=== PATIENT | female | born 1945 | race Caucasian/White ===

== ENCOUNTER → 2017-02-02 | Outpatient (CLI) | payer OTHER ==
[~2017-02-02] MED LIST: ASPIRIN EC81 MG PO; COLCRYS0.6 MG PO; COREG 12.5MG12.5 MG PO; CYMBALTA60 MG PO; GLUCOPHAGE 500500 MG PO; HYDRALAZINE HCL25 MG PO; INCRUSE ELLI62.5 MCG INH; LASIX TAB 20 MG20 MG PO; LEVAQUIN750 MG PO; LORTAB 5-325 M1 EACH PO; MAGNESIUM OXID500 MG PO; NEURONTIN 300300 MG PO; NORVASC 5 MG TAB5 MG PO; PLAVIX 75 MG TA75 MG PO; PRAVACHOL40 MG PO; ROCALTROL CA0.25 MCG PO; SYMBICORT 160-1 INHA INH; SYNTHROID 100100 MCG PO; TYLENOL 325MG325 MG PO; VITAMIN B-122500 MCG PO; VITAMIN B-6100 MG PO; VITAMIN D31000 UNI1 PO; ZANTAC 150 MG150 MG PO; ZANTAC150 MG PO
== END ==
LOC: OPSV 08:30
DX: N28.1 Cyst of kidney, acquired (principal); N28.89 Other specified disorders of kidney and ureter
CPT/HCPCS: 74170; 96360; 96361; J7030; J7050; Q9962

== ENCOUNTER 2021-02-09 13:23 | Emergency (ER) | payer OTHER ==
[~2021-02-09 13:23] MED LIST changes: +ACETAZOLAMIDE250 MG PO; +ACID CONTROL150 MG PO; +ACID REDUCER150 MG PO; +ALBUTEROL2.5 MG/3 M INH; +ASPIR 8181 MG PO; +BROVANA15 MCG/2 M NEB; +BUDESONIDE0.5 MG/2 M NEB; +BUMEX 1MG TABLET1 MG PO; +DELSYM30 MG/5 ML PO; +DULERA 200 MCG8.8 GM INH; +ELIQUIS 5 MG TAB5 MG PO; +FEOSOL325 MG PO; +FERROUS SULFAT325 M2 PO; +FUROSEMIDE20 MG PO; +HYDRALAZINE HCL10 MG PO; +K-DUR TAB 10 M10 MEQ PO; +K-TAB ER20 MEQ PO; +LASIX20 MG PO; +LASIX40 MG PO; +LEVOTHYROXINE100 MCG PO; +LOPRESSOR50 MG PO; +MAGNESIUM500 MG PO; +MEDROL DOSEPAK 24 MG PO; +MEDROL4 MG PO; +NEURONTIN300 MG PO; +NORVASC5 MG PO; +OMEPRAZOLE40 MG PO; +PERCOCET 10-321 EACH PO; +PREDNISONE20 MG PO; +PROTONIX40 MG PO; +RANITIDINE PO; +SPIRIVA18 MCG INH; +TIROSINT100 MCG PO; +TOPROL XL50 MG PO; +VENTOLIN HFA 66.7 GM INH; +VITAMIN B-122500 MCG SL; +VITAMIN D350 MCG PO; +YUPELRI175 MCG/3 INH; +ZITHROMAX500 MG PO; +ZOLOFT25 MG PO; +ZYLOPRIM 300 M300 MG PO; +ZYVOX600 MG PO
[2021-02-09 14:24] LABS: HEMOGLOBIN 10.4 gm/dl (12.3-15.3); RED BLOOD COUNT 3.37 M/UL (4.00-5.10); WHITE BLOOD COUNT 10.4 K/UL (4.5-11.0)
[2021-02-09 14:45] LABS: BUN/CREATININE RATIO 18 (0-10)
== END 2021-02-09 17:17 | disposition home or self-care (01) ==
LOC: ER1 13:23
PROVIDERS: Physician Assistant
DX: J44.9 Chronic obstructive pulmonary disease, unspecified (principal); I13.0 Hypertensive heart and chronic kidney disease with heart failure and stage 1 through stage 4 chronic kidney disease, or unspecified chronic kidney disease; I50.9 Heart failure, unspecified; N18.9 Chronic kidney disease, unspecified; K21.9 Gastro-esophageal reflux disease without esophagitis; I48.91 Unspecified atrial fibrillation; I25.10 Atherosclerotic heart disease of native coronary artery without angina pectoris; Z86.73 Personal history of transient ischemic attack (TIA), and cerebral infarction without residual deficits
CPT/HCPCS: 71045; 80053; 82550; 82553; 83874; 83880; 84484; 85025; 93005; 94664; 94760; 96374; 99285; J1940

== ENCOUNTER 2021-02-17 13:39 | Inpatient (IN) | payer OTHER ==
[~2021-02-17] VITALS: Ht 160 cm; Wt 81.9 kg
[2021-02-17 14:59] LABS: HEMOGLOBIN 9.4 gm/dl (12.3-15.3); RED BLOOD COUNT 3.09 M/UL (4.00-5.10); WHITE BLOOD COUNT 13.4 K/UL (4.5-11.0)
[2021-02-17 15:37] LABS: BUN/CREATININE RATIO 27 (0-10)
[2021-02-17] MEDS ORDERED: SPIRONOLACTONE25 MG PO (19:29)
[2021-02-17] MEDS ORDERED: BUSPAR 10MG10 MG PO (19:30)
[2021-02-17] MEDS ORDERED: PREDNISONE10 MG PO (19:31)
[2021-02-17] MEDS ORDERED: PERCOCET 10-321 EACH PO (23:40)
[2021-02-18 03:15] LABS: HEMOGLOBIN 8.8 gm/dl (12.3-15.3); RED BLOOD COUNT 2.92 M/UL (4.00-5.10)
[2021-02-19 02:09] LABS: HEMOGLOBIN 8.5 gm/dl (12.3-15.3); RED BLOOD COUNT 2.81 M/UL (4.00-5.10); WHITE BLOOD COUNT 9.2 K/UL (4.5-11.0)
[2021-02-20 02:42] LABS: HEMOGLOBIN 8.6 gm/dl (12.3-15.3); RED BLOOD COUNT 2.84 M/UL (4.00-5.10); WHITE BLOOD COUNT 9.6 K/UL (4.5-11.0)
[2021-02-20] MEDS ORDERED: IPRAT-ALBUT 0.5-3 ML INH (12:08)
[2021-02-20] MEDS ORDERED: DILTIAZEM 24HR180 M1 PO (12:08)
[2021-02-20] MEDS ORDERED: OMEPRAZOLE20 MG PO (12:16)
[2021-02-21 03:04] LABS: HEMOGLOBIN 8.2 gm/dl (12.3-15.3); RED BLOOD COUNT 2.72 M/UL (4.00-5.10)
[2021-02-21 03:08] LABS: WHITE BLOOD COUNT 6.8 K/UL (4.5-11.0)
--- NOTE | 2021-02-21 14:26 | NUR ---
PT GIVEN AN INCENTIVE SPIROMETER PER MD ORDER, INSTRUCTED PT ON USE OF 10 TIMES PER HOUR WHILE AWAKE, ALSO INFORMED PT OF EFFECTIVENESS OF USE
[2021-02-22 02:27] LABS: HEMOGLOBIN 8.3 gm/dl (12.3-15.3); RED BLOOD COUNT 2.74 M/UL (4.00-5.10); WHITE BLOOD COUNT 7.1 K/UL (4.5-11.0)
[2021-02-22 10:46] LABS: BORDETELLA PARAPERTUSSIS Not Detected (Not Detectd); BORDETELLA PERTUSSIS Not Detected (Not Detectd); CHLAMYDIA PNEUMONIAE Not Detected (Not Detectd); CORONAVIRUS HKU1 Not Detected (Not Detectd); CORONAVIRUS NL63 Not Detected (Not Detectd); CORONAVIRUS OC43 Not Detected (Not Detectd); CORONOAVIRUS 229E Not Detected (Not Detectd); HUMAN METAPNEUMOVIRUS Not Detected (Not Detectd); HUMAN RHINOVIRUS/ENTEROVIRUS Not Detected (Not Detectd); INFLUENZA A Not Detected (Not Detectd); INFLUENZA B Not Detected (Not Detectd); MYCOPLASMA PNEUMONIAE Not Detected (Not Detectd); PARAINFLUENZA VIRUS 1 Not Detected (Not Detectd); PARAINFLUENZA VIRUS 2 Not Detected (Not Detectd); PARAINFLUENZA VIRUS 3 Not Detected (Not Detectd); PARAINFLUENZA VIRUS 4 Not Detected (Not Detectd); RESPIRATORY SYNCYTIAL VIRUS Not Detected (Not Detectd)
[2021-02-22 14:27] LABS: SARS-CoV-2 NOT DETECTED (Not Detectd)
[2021-02-23] MEDS ORDERED: DOXYCYCLINE HY100 M2 PO (16:43)
[2021-02-23] MEDS ORDERED: FUROSEMIDE20 MG PO (16:43)
[2021-02-23] MEDS ORDERED: DIAMOX 250 MG250 MG PO (16:43)
[2021-02-23] MEDS ORDERED: AUGMENTIN 875-1 EACH PO (16:43)
[2021-02-24 02:25] LABS: RED BLOOD COUNT 2.97 M/UL (4.00-5.10); WHITE BLOOD COUNT 8.1 K/UL (4.5-11.0)
[2021-02-24] MEDS ORDERED: DOXYCYCLINE HY100 M2 PO (12:02)
[2021-02-24] MEDS ORDERED: FUROSEMIDE20 MG PO (12:02)
[2021-02-24] MEDS ORDERED: BROVANA15 MCG/2 M INH (12:11)
== END 2021-02-24 18:18 | disposition home or self-care (01) | DRG 291 ==
LOC: ER1 13:39 → PROG CARE 19:12 → CDU 19:12 → PROG CARE 19:12
PROVIDERS: Family Medicine; Internal Medicine; ADMIT Internal Medicine
DX: I13.0 Hypertensive heart and chronic kidney disease with heart failure and stage 1 through stage 4 chronic kidney disease, or unspecified chronic kidney disease (principal); J96.21 Acute and chronic respiratory failure with hypoxia; I50.33 Acute on chronic diastolic (congestive) heart failure; J96.22 Acute and chronic respiratory failure with hypercapnia; I48.21 Permanent atrial fibrillation; N17.9 Acute kidney failure, unspecified; J81.1 Chronic pulmonary edema; F11.20 Opioid dependence, uncomplicated; I48.91 Unspecified atrial fibrillation; N18.30 Chronic kidney disease, stage 3 unspecified; E03.9 Hypothyroidism, unspecified; J44.9 Chronic obstructive pulmonary disease, unspecified; J40 Bronchitis, not specified as acute or chronic; E78.5 Hyperlipidemia, unspecified; D53.9 Nutritional anemia, unspecified; K21.9 Gastro-esophageal reflux disease without esophagitis; I49.5 Sick sinus syndrome; F41.9 Anxiety disorder, unspecified; I27.20 Pulmonary hypertension, unspecified; I25.10 Atherosclerotic heart disease of native coronary artery without angina pectoris; Z20.822 Contact with and (suspected) exposure to COVID-19; Z96.643 Presence of artificial hip joint, bilateral; I73.9 Peripheral vascular disease, unspecified; D50.9 Iron deficiency anemia, unspecified; Z96.659 Presence of unspecified artificial knee joint; M81.0 Age-related osteoporosis without current pathological fracture; E66.01 Morbid (severe) obesity due to excess calories; Z90.89 Acquired absence of other organs; Z95.0 Presence of cardiac pacemaker; Z82.49 Family history of ischemic heart disease and other diseases of the circulatory system; Z80.51 Family history of malignant neoplasm of kidney; Z87.891 Personal history of nicotine dependence; Z80.9 Family history of malignant neoplasm, unspecified; Z68.32 Body mass index [BMI] 32.0-32.9, adult
CPT/HCPCS: 36415; 36600; 71045; 71046; 80048; 80053; 82533; 82550; 82553; 82565; 82803; 83735; 83874; 83880; 84439; 84443; 84484; 85025; 85027; 87633; 93005; 94640; 94664; 94760; 96372; 96374; 96375; 96376; 97162; 99285; G0378; J1120; J1335; J1940; P9045; U0002

== ENCOUNTER 2021-06-01 14:46 | Inpatient (IN) | payer OTHER ==
[~2021-06-01] VITALS: Ht 160 cm; Wt 85.3 kg
[~2021-06-01 14:46] MED LIST changes: +AUGMENTIN 875-1 EACH PO; +BROVANA15 MCG/2 M INH; +BUSPAR 10MG10 MG PO; +DIAMOX 250 MG250 MG PO; +DILTIAZEM 24HR180 M1 PO; +DOXYCYCLINE HY100 M2 PO; +IPRAT-ALBUT 0.5-3 ML INH; +OMEPRAZOLE20 MG PO; +PREDNISONE10 MG PO; +SPIRONOLACTONE25 MG PO
[2021-06-01 16:47] LABS: HEMOGLOBIN 9.1 gm/dl (12.3-15.3); RED BLOOD COUNT 3.01 M/UL (4.00-5.10); WHITE BLOOD COUNT 6.7 K/UL (4.5-11.0)
[2021-06-01 17:14] LABS: BUN/CREATININE RATIO 24 (0-10)
[2021-06-02] MEDS ORDERED: DEMEROL 50 MG PO (03:17)
[2021-06-02] MEDS ORDERED: [UNRECOGNIZED DRUG - OTHER] PO (03:17)
[2021-06-02] MEDS ORDERED: NEURONTIN300 MG PO (03:18)
[2021-06-02] MEDS ORDERED: MAGNESIUM250 MG PO (03:19)
[2021-06-02] MEDS ORDERED: AMLODIPINE BESYL5 MG PO (03:20)
[2021-06-02] MEDS ORDERED: PROAIR DIGIHAL90 MCG INH (03:21)
[2021-06-02] MEDS ORDERED: ALBUTEROL2.5 MG/3 M INH (03:22)
[2021-06-02 05:01] LABS: HEMOGLOBIN 8.2 gm/dl (12.3-15.3); RED BLOOD COUNT 2.76 M/UL (4.00-5.10); WHITE BLOOD COUNT 5.3 K/UL (4.5-11.0)
[2021-06-02 05:40] LABS: BUN/CREATININE RATIO 24 (0-10)
[2021-06-02] MEDS ORDERED: DILTIAZEM ER180 MG PO (12:02)
[2021-06-02] MEDS ORDERED: FEROSUL325 MG PO (12:20)
[2021-06-02] MEDS ORDERED: PREDNISONE 10 M10 MG PO (12:21)
[2021-06-02 15:18] LABS: BORDETELLA PARAPERTUSSIS Not Detected (Not Detectd); BORDETELLA PERTUSSIS Not Detected (Not Detectd); CHLAMYDIA PNEUMONIAE Not Detected (Not Detectd); CORONAVIRUS HKU1 Not Detected (Not Detectd); CORONAVIRUS NL63 Not Detected (Not Detectd); CORONAVIRUS OC43 Not Detected (Not Detectd); CORONOAVIRUS 229E Not Detected (Not Detectd); HUMAN METAPNEUMOVIRUS Not Detected (Not Detectd); HUMAN RHINOVIRUS/ENTEROVIRUS Not Detected (Not Detectd); INFLUENZA A Not Detected (Not Detectd); INFLUENZA B Not Detected (Not Detectd); MYCOPLASMA PNEUMONIAE Not Detected (Not Detectd); PARAINFLUENZA VIRUS 1 Not Detected (Not Detectd); PARAINFLUENZA VIRUS 2 Not Detected (Not Detectd); PARAINFLUENZA VIRUS 3 Not Detected (Not Detectd); PARAINFLUENZA VIRUS 4 Not Detected (Not Detectd); RESPIRATORY SYNCYTIAL VIRUS Not Detected (Not Detectd)
[2021-06-02 18:17] LABS: SARS-CoV-2 NOT DETECTED (Not Detectd)
[2021-06-03 02:36] LABS: HEMOGLOBIN 8.2 gm/dl (12.3-15.3); RED BLOOD COUNT 2.75 M/UL (4.00-5.10); WHITE BLOOD COUNT 5.9 K/UL (4.5-11.0)
[2021-06-04 03:47] LABS: RED BLOOD COUNT 2.67 M/UL (4.00-5.10); WHITE BLOOD COUNT 4.5 K/UL (4.5-11.0)
[2021-06-05 03:14] LABS: RED BLOOD COUNT 2.62 M/UL (4.00-5.10); WHITE BLOOD COUNT 4.1 K/UL (4.5-11.0)
[2021-06-06 09:59] LABS: HEMOGLOBIN 8.2 gm/dl (12.3-15.3); RED BLOOD COUNT 2.74 M/UL (4.00-5.10)
[2021-06-07 08:09] LABS: RED BLOOD COUNT 2.68 M/UL (4.00-5.10); WHITE BLOOD COUNT 6.4 K/UL (4.5-11.0)
[2021-06-08 01:43] LABS: HEMOGLOBIN 8.4 gm/dl (12.3-15.3); RED BLOOD COUNT 2.75 M/UL (4.00-5.10); WHITE BLOOD COUNT 6.8 K/UL (4.5-11.0)
[2021-06-09 04:16] LABS: HEMOGLOBIN 8.3 gm/dl (12.3-15.3); RED BLOOD COUNT 2.76 M/UL (4.00-5.10); WHITE BLOOD COUNT 6.7 K/UL (4.5-11.0)
[2021-06-10 02:31] LABS: RED BLOOD COUNT 2.61 M/UL (4.00-5.10); WHITE BLOOD COUNT 3.8 K/UL (4.5-11.0)
--- NOTE | 2021-06-10 14:51 | NUR ---
PATIENT TRANSFERRED TO [facility] FROM [facility] AT APPROX 2PM
[2021-06-11 02:44] LABS: HEMOGLOBIN 8.3 gm/dl (12.3-15.3); RED BLOOD COUNT 2.71 M/UL (4.00-5.10)
[2021-06-12 08:34] LABS: HEMOGLOBIN 8.9 gm/dl (12.3-15.3); RED BLOOD COUNT 2.96 M/UL (4.00-5.10); WHITE BLOOD COUNT 3.7 K/UL (4.5-11.0)
[2021-06-13 05:04] LABS: HEMOGLOBIN 8.9 gm/dl (12.3-15.3); RED BLOOD COUNT 2.94 M/UL (4.00-5.10)
[2021-06-13 05:08] LABS: WHITE BLOOD COUNT 5.5 K/UL (4.5-11.0)
[2021-06-15] MEDS ORDERED: HUMIBID LA TAB600 MG PO (11:31)
[2021-06-15] MEDS ORDERED: CARDIZEM 90MG T90 MG PO (11:31)
[2021-06-15] MEDS ORDERED: LOPRESSOR 50 MG50 MG PO (11:31)
[2021-06-15] MEDS ORDERED: ELIQUIS 2.5 MG2.5 MG PO (11:31)
[2021-06-15] MEDS ORDERED: AMIODARONE HCL200 MG PO (11:31)
[2021-06-15] MEDS ORDERED: NEURONTIN300 MG PO (11:31)
[2021-06-15] MEDS ORDERED: MIRALAX17 GM PO (11:34)
[2021-06-15] MEDS ORDERED: COLACE100 MG PO (11:34)
[2021-06-16 03:47] LABS: RED BLOOD COUNT 3.15 M/UL (4.00-5.10)
[2021-06-16 04:03] LABS: WHITE BLOOD COUNT 8.8 K/UL (4.5-11.0)
[2021-06-17 03:05] LABS: HEMOGLOBIN 10.3 gm/dl (12.3-15.3); RED BLOOD COUNT 3.39 M/UL (4.00-5.10); WHITE BLOOD COUNT 10.3 K/UL (4.5-11.0)
[2021-06-18 03:54] LABS: HEMOGLOBIN 9.1 gm/dl (12.3-15.3)
[2021-06-18 03:57] LABS: RED BLOOD COUNT 2.94 M/UL (4.00-5.10); WHITE BLOOD COUNT 7.6 K/UL (4.5-11.0)
[2021-06-19 02:59] LABS: RED BLOOD COUNT 2.87 M/UL (4.00-5.10); WHITE BLOOD COUNT 5.8 K/UL (4.5-11.0)
[2021-06-20 02:34] LABS: HEMOGLOBIN 9.1 gm/dl (12.3-15.3); RED BLOOD COUNT 2.89 M/UL (4.00-5.10); WHITE BLOOD COUNT 6.4 K/UL (4.5-11.0)
[2021-06-20] MEDS ORDERED: ELIQUIS2.5 MG PO (10:02)
[2021-06-20] MEDS ORDERED: LOPRESSOR100 MG PO (10:02)
[2021-06-20] MEDS ORDERED: AMIODARONE HCL200 MG PO (10:02)
[2021-06-20] MEDS ORDERED: THERAGRAN M TAB1 EA PO (10:02)
[2021-06-20] MEDS ORDERED: BUMETANIDE1 MG PO (10:02)
== END 2021-06-20 15:18 | disposition home or self-care (01) | DRG 291 ==
LOC: ER1 14:46 → CDU 18:57 → PROG CARE 18:57
PROVIDERS: Emergency Medicine; Internal Medicine; Internal Medicine Nephrology; ADMIT Internal Medicine
PROC: B24BZZZ Ultrasonography of Heart with Aorta (ICD-10-PCS; 2021-06-01)
PROC: 5A09457 Assistance with Respiratory Ventilation, 24-96 Consecutive Hours, Continuous Positive Airway Pressure (ICD-10-PCS; principal; 2021-06-17)
DX: I13.0 Hypertensive heart and chronic kidney disease with heart failure and stage 1 through stage 4 chronic kidney disease, or unspecified chronic kidney disease (principal); I50.33 Acute on chronic diastolic (congestive) heart failure; J96.21 Acute and chronic respiratory failure with hypoxia; J96.22 Acute and chronic respiratory failure with hypercapnia; G92 Toxic encephalopathy; N18.4 Chronic kidney disease, stage 4 (severe); N17.9 Acute kidney failure, unspecified; E87.3 Alkalosis; I48.21 Permanent atrial fibrillation; F11.20 Opioid dependence, uncomplicated; L97.829 Non-pressure chronic ulcer of other part of left lower leg with unspecified severity; I48.91 Unspecified atrial fibrillation; D63.1 Anemia in chronic kidney disease; E66.01 Morbid (severe) obesity due to excess calories; J44.9 Chronic obstructive pulmonary disease, unspecified; E78.5 Hyperlipidemia, unspecified; F41.9 Anxiety disorder, unspecified; I49.5 Sick sinus syndrome; Z96.643 Presence of artificial hip joint, bilateral; E89.0 Postprocedural hypothyroidism; I83.028 Varicose veins of left lower extremity with ulcer other part of lower leg; E87.5 Hyperkalemia; E83.41 Hypermagnesemia; E11.40 Type 2 diabetes mellitus with diabetic neuropathy, unspecified; E11.22 Type 2 diabetes mellitus with diabetic chronic kidney disease; M81.0 Age-related osteoporosis without current pathological fracture; I27.20 Pulmonary hypertension, unspecified; I08.1 Rheumatic disorders of both mitral and tricuspid valves; E11.51 Type 2 diabetes mellitus with diabetic peripheral angiopathy without gangrene; Z96.659 Presence of unspecified artificial knee joint; E56.9 Vitamin deficiency, unspecified; Z20.822 Contact with and (suspected) exposure to COVID-19; Z98.890 Other specified postprocedural states; Z95.1 Presence of aortocoronary bypass graft; Z95.0 Presence of cardiac pacemaker; Z79.01 Long term (current) use of anticoagulants; Z79.52 Long term (current) use of systemic steroids; Z79.890 Hormone replacement therapy; Z79.899 Other long term (current) drug therapy; Z82.49 Family history of ischemic heart disease and other diseases of the circulatory system; Z80.51 Family history of malignant neoplasm of kidney; Z87.01 Personal history of pneumonia (recurrent); Z68.32 Body mass index [BMI] 32.0-32.9, adult
CPT/HCPCS: ECHO; 36415; 36600; 51702; 71045; 71046; 73030; 80048; 80053; 80069; 81001; 82272; 82550; 82553; 82607; 82728; 82746; 82803; 82962; 83540; 83550; 83605; 83735; 83874; 83880; 84100; 84132; 84439; 84443; 84484; 85025; 85027; 87040; 87070; 87077; 87186; 87205; 87633; 93005; 93306; 94640; 94660; 94664; 94760; 97110-GP-CQ; 97116-GP-CQ; 97161; 97530; 97530-GP-CQ; 99285; J0696; J1120; J1205; J1335; J1756; J1940; J2405; J2930; P9047; U0002